=== PATIENT | male | born 1995 | race Two or more races ===

== ENCOUNTER 2024-11-18 13:25 | Emergency (ER) | payer OTHER ==
[~2024-11-18] VITALS: Ht 190.5 cm; Wt 75.3 kg
[2024-11-18 13:48] VITALS: BP 122/69; TEMP 97.8; O2SAT 99
[2024-11-18] MEDS ORDERED: FLUT15.845 NS (14:31)
== END 2024-11-18 14:50 | disposition home or self-care (01) ==
LOC: ER 13:29
DX: J34.3 Hypertrophy of nasal turbinates (principal)